=== PATIENT | male | born 1960 | race Caucasian/White ===

== ENCOUNTER 2018-10-27 15:55 | Emergency (ER) | payer MEDICAID ==
[~2018-10-27] VITALS: Ht 172.7 cm; Wt 77.1 kg
[2018-10-27 15:57] VITALS: BP 102/62
[2018-10-27 19:26] VITALS: BP 102/62
== END 2018-10-27 19:25 | disposition left against medical advice (07) ==
LOC: MED 15:55
DX: F10.129 Alcohol abuse with intoxication, unspecified (principal); R53.1 Weakness; Z53.21 Procedure and treatment not carried out due to patient leaving prior to being seen by health care provider